=== PATIENT | male | born 1975 | race Caucasian/White ===

== ENCOUNTER → 2020-12-12 11:29 | Outpatient (BNVA) | payer OTHER, SELFPAY | PROVIDERS: Visit Provider Physician Assistant | DX: S89.92XA Unspecified injury of left lower leg, initial encounter (principal); W00.0XXA Fall on same level due to ice and snow, initial encounter | CPT/HCPCS: 73564; 99203 ==

== ENCOUNTER → 2020-12-16 10:12 | Outpatient (BNVA) | payer OTHER, SELFPAY | PROVIDERS: Visit Provider Physician Assistant Medical | DX: S89.92XA Unspecified injury of left lower leg, initial encounter (principal); W00.0XXA Fall on same level due to ice and snow, initial encounter | CPT/HCPCS: 99213 ==

== ENCOUNTER → 2020-12-27 10:07 | Outpatient (BNVA) | payer OTHER, SELFPAY | PROVIDERS: Visit Provider Physician Assistant | DX: M23.92 Unspecified internal derangement of left knee (principal) | CPT/HCPCS: 99213 ==

== ENCOUNTER → 2021-01-10 08:52 | Outpatient (BNVA) | payer OTHER, SELFPAY | PROVIDERS: Visit Provider Physician Assistant | DX: S89.92XD Unspecified injury of left lower leg, subsequent encounter (principal); X58.XXXD Exposure to other specified factors, subsequent encounter | CPT/HCPCS: 99213 ==

== ENCOUNTER 2021-01-12 14:00 | Outpatient (RCR) | payer OTHER, BC, SELFPAY ==
--- NOTE | 2020-12-20 10:33 | MHC.PT.EP ---
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 HE WORKS FULL-TIME AND IS CURRENTLY ON LIGHT DUTY x 2 WEEKS- HE WAS ISSUED A Lt OPEN PATELLA KNEE SLEEVE. Pt HAS (+) EDEMA Lt KNEE W TENDERNESS Lt PERIPATELLAR/ LATERAL (LCL LIG, ITB TISSUE) KNEE PAIN. OBJECTIVELY, HE HAS DECR AROM IN Lt KNEE, DECR FLEXIB IN HIPS AND HS, AND PAIN INFLUENCING STRENGTH. FUNCTIONALLY, Pt ABLE TO SQUAT 3/4 RANGE W WT SHIFT RT, SLS Lt x 3 SEC W INCR EFFORT (Rt LE x 10 SEC), DIFFIC W STAIR MGMT AND Lt KNEE IS GUARDED W GAIT AND TRANSFERS. CURRENTLY, HE HIS SXS ARE LOCALIZED TO Lt LCL/ DISTAL ITB W RESIDUAL PF SXS, HE DID NOT APPEAR TO HAVE ASYMM INSTAB W SPECIAL TESTS. PT WOULD BENEFIT FROM PT TO ADDRESS PAIN AND IMPROVE FUNCT MOB STEVE/ DEV HEP AND SELF SX MGMT STRATEGIES. Frequency and Duration: The patient will be seen 2x WK X 4 WKS Short Term Goals: DECR Lt KNEE PAIN TO 2-3/10 IN 2 WKS IMPROVE SCAR HIP FLEXIB AND Lt KNEE AROM IN 2 WKS Pt DEMON SLS Lt X 10 SEC IN 2 WKS Fci Goals: Pt INDEP W HEP ADDRESSING STRENGTH, PROPRIOCEPTION, AND SELF SX MGMT IN 4 WKS Pt RESUME REG ADLs/ WORK TASKS EVIDENT W IMPROVED LEFT SCORE BY BY 15 POINTS (AT EVAL 44/80) IN 4 WKS Treatment Plan: Modalities to reduce pain, spasms and effusion. Manual therapy to restore motion and function. Therapeutic exercise to improve strength and flexibility. Neuromuscular re-education for posture and balance. Therapeutic activities to return to functional activities of daily living. Electronically signed by: Maryanne Gleason PT Please sign and return to therapist. Thank you for your referral.
--- NOTE | 2021-01-12 14:47 | MHC.PT.DC ---
[facility] [place] Office [place] [facility] [place] [facility] [address] Christiane Macias [address] [phone] F: [phone] F: [phone] F: [phone] F: [phone] Physical Therapy Discharge Report Diagnosis: LEFT KNEE INJURY, ?MENISCAL INJURY Date of Surgery: Date of Evaluation: 12/20/20 Date of Discharge: 01/12/21 Treatments to Date: 8 Cancellations to Date: 0 No Shows to Date: 0 Discharge Status: Achieved Goals Improved Function Independent with HEP Discharge Summary: pt asked if there were any other hip stretches he could try as his hip has been feeling tight. He was shown a hip ER and hip flexor stretch which he felt were addressing the areas he felt tight. pt has been reporting little to no knee pain and is tolerating half-shifts at work well w/ no increased pain. pt reported no questions and is I w/ HEP. He has appropriate equipment at home to continue to maintain his gains. pt is D/C'd from this PT POC. Electronically signed by: Ofelia George PT, DPT Please sign and return to therapist. Thank you for your referral.
== END 2021-01-12 14:48 | disposition other institution (70) ==
LOC: HO.PT 14:00
PROVIDERS: Visit Provider Physician Assistant Medical
DX: S89.92XA Unspecified injury of left lower leg, initial encounter (principal)
CPT/HCPCS: 97110; 97112; 97162; 97530

== ENCOUNTER → 2021-01-17 09:13 | Outpatient (BNVA) | payer OTHER, SELFPAY | PROVIDERS: Visit Provider Physician Assistant | DX: S83.92XD Sprain of unspecified site of left knee, subsequent encounter (principal); X58.XXXD Exposure to other specified factors, subsequent encounter | CPT/HCPCS: 99213 ==